=== PATIENT | male | born 2000 | race Native Hawaiian/Other Pacific Islander ===

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

== ENCOUNTER 2019-07-06 21:21 | Emergency (ER) | payer OTHER ==
[~2019-07-06] VITALS: Ht 180.3 cm; Wt 113.4 kg
[2019-07-06 21:30] VITALS: BP 144/91; TEMP 97.7
== END 2019-07-06 22:48 | disposition home or self-care (01) ==
LOC: ED 21:21
DX: L73.9 Follicular disorder, unspecified (principal)
CPT/HCPCS: 99282

== ENCOUNTER 2020-05-02 19:07 | Emergency (ER) | payer OTHER ==
[~2020-05-02] VITALS: Ht 177.8 cm; Wt 110.0 kg
[2020-05-02 21:50] VITALS: BP 141/81; TEMP 98.5
== END 2020-05-02 21:50 | disposition home or self-care (01) ==
LOC: ED 19:07
PROC: 08C8XZZ Extirpation of Matter from Right Cornea, External Approach (ICD-10-PCS; principal; 2020-05-02)
DX: T15.01XA Foreign body in cornea, right eye, initial encounter (principal); H16.131 Photokeratitis, right eye
CPT/HCPCS: 99283

== ENCOUNTER 2020-07-05 08:51 | Emergency (ER) | payer OTHER ==
[~2020-07-05] VITALS: Ht 177.8 cm; Wt 106.1 kg
[2020-07-05 09:01] VITALS: TEMP 98.2
[2020-07-05 10:05] VITALS: BP 132/68
== END 2020-07-05 10:05 | disposition home or self-care (01) ==
LOC: ED 08:51
DX: T15.01XA Foreign body in cornea, right eye, initial encounter (principal); X58.XXXA Exposure to other specified factors, initial encounter; Y92.89 Other specified places as the place of occurrence of the external cause
CPT/HCPCS: 99283

== ENCOUNTER 2020-08-10 14:36 | Emergency (ER) | payer OTHER ==
[~2020-08-10] VITALS: Ht 177.8 cm; Wt 106.1 kg
[2020-08-10 15:49] VITALS: BP 120/82; TEMP 98.3
== END 2020-08-10 15:56 | disposition home or self-care (01) ==
LOC: ED 14:36
DX: M75.51 Bursitis of right shoulder (principal)
CPT/HCPCS: 96372; 99283; J1885; J2930

== ENCOUNTER 2021-05-27 13:44 | Emergency (ER) | payer OTHER ==
[~2021-05-27] VITALS: Ht 177.8 cm; Wt 106.1 kg
[2021-05-27 13:56] VITALS: BP 127/82; TEMP 98.6
== END 2021-05-27 15:12 | disposition home or self-care (01) ==
LOC: ED 13:44
DX: K04.7 Periapical abscess without sinus (principal)
CPT/HCPCS: 99281

== ENCOUNTER 2021-07-18 18:34 | Emergency (ER) | payer OTHER ==
[~2021-07-18] VITALS: Ht 177.8 cm; Wt 106.1 kg
[2021-07-18 19:34] LABS: PLATELET COUNT 241 K/uL (142-355)
[2021-07-18 19:50] LABS: POTASSIUM 3.7 mmol/L (3.6-5.2)
[2021-07-18 21:08] VITALS: BP 150/80; TEMP 98.4
== END 2021-07-18 21:09 | disposition home or self-care (01) ==
LOC: ED 18:34
PROVIDERS: Family Medicine
DX: R10.13 Epigastric pain (principal); K52.89 Other specified noninfective gastroenteritis and colitis; Z20.822 Contact with and (suspected) exposure to COVID-19
CPT/HCPCS: 36415; 80053; 81000; 82150; 83690; 85027; 87502; 87635; 87651; 99283; U0003

== ENCOUNTER 2021-08-07 16:22 | Emergency (ER) | payer OTHER ==
[~2021-08-07] VITALS: Ht 177.8 cm; Wt 106.1 kg
[2021-08-07 16:30] VITALS: BP 139/86; TEMP 97.4
== END 2021-08-07 17:18 | disposition home or self-care (01) ==
LOC: ED 16:22
DX: L03.012 Cellulitis of left finger (principal)
CPT/HCPCS: 96372; 99283; J0696; J1885

== ENCOUNTER 2022-08-29 09:54 | Emergency (ER) | payer OTHER ==
[~2022-08-29] VITALS: Ht 177.8 cm; Wt 111.1 kg
[2022-08-29 09:57] VITALS: TEMP 98.2
[2022-08-29 14:10] VITALS: BP 138/91
== END 2022-08-29 14:10 | disposition short-term general hospital (02) ==
LOC: ED 09:54
DX: S06.0X1A Concussion with loss of consciousness of 30 minutes or less, initial encounter (principal); S13.4XXA Sprain of ligaments of cervical spine, initial encounter; V49.50XA Passenger injured in collision with unspecified motor vehicles in traffic accident, initial encounter; Y92.89 Other specified places as the place of occurrence of the external cause
CPT/HCPCS: 99284

== ENCOUNTER 2022-09-18 08:08 | Emergency (ER) | payer OTHER ==
[~2022-09-18] VITALS: Ht 172.7 cm; Wt 117.0 kg
[2022-09-18 08:10] VITALS: BP 139/84; TEMP 99.4
== END 2022-09-18 08:51 | disposition home or self-care (01) ==
LOC: ED 08:08
DX: L02.216 Cutaneous abscess of umbilicus (principal)
CPT/HCPCS: 99282